=== PATIENT | male | born 1980 | race African-American/Black ===

== ENCOUNTER 2019-09-21 03:06 | Emergency (ER) | payer MEDICAID ==
[~2019-09-21] VITALS: Ht 185.4 cm; Wt 73.0 kg
[2019-09-21] MEDS ORDERED: AZITHROMYCIN 500 MG TABLET PO ONE (04:30)
[2019-09-21] MEDS ORDERED: CEFTRIAXONE SODIUM 250 MG/VIAL IM ONE (04:30)
[2019-09-21 05:01] LABS: CLARITY URINE CLOUDY (CLEAR); COLOR URINE YELLOW (YELLOW); KETONES URINE NEGATIVE (NEGATIVE); LEUKOCYTE ESTERASE URINE 2+ (NEGATIVE); NITRITE URINE NEGATIVE (NEGATIVE); OCCULT BLOOD URINE NEGATIVE (NEGATIVE); PROTEIN URINE TRACE (NEGATIVE); SPECIFIC GRAVITY URINE 1.033 (1.005-1.030)
[2019-09-21 05:43] VITALS: BP 118/80
== END 2019-09-21 05:43 | disposition home or self-care (01) ==
LOC: ER 03:06
DX: Z11.3 Encounter for screening for infections with a predominantly sexual mode of transmission (principal); N39.0 Urinary tract infection, site not specified; F17.200 Nicotine dependence, unspecified, uncomplicated; Z98.890 Other specified postprocedural states
CPT/HCPCS: 81003; 87086; 96372; 99283; J0696